=== PATIENT | male | born 1955 | race Caucasian/White ===

== ENCOUNTER 2017-06-28 10:49 | Emergency (ER) | payer OTHER ==
[~2017-06-28] VITALS: Ht 175.3 cm; Wt 88.5 kg
--- NOTE | 2017-06-28 11:57 | ED INFLUENZA/URI COMPLAINT ---
History of Present Illness General Chief Complaint: Upper Respiratory Sx/Fever Stated Complaint: ?FLU Source: patient Exam Limitations: no limitations Vital Signs & Intake/Output Vital Signs & Intake/Output Vital Signs Date Time Temp Pulse Resp B/P B/P Pulse O2 O2 Flow FiO2 Mean Ox Delivery Rate 06/28 1201 97 06/28 1158 97.6 94 18 134/102 97 Room Air 06/28 1103 98.8 96 20 170/121 99 Room Air Allergies Coded Allergies: Penicillins (RASH/HIVE 06/28/17) Reconcile Medications Benzonatate (Tessalon Perle) 100 MG CAPSULE 1 CAP PO TID PRN COUGH Mometasone Furoate (Nasonex) 50 MCG SPRAY.PUMP 2 SPRAY NASB DAILY CONGESTION Oseltamivir Phosphate (Tamiflu) 75 MG CAPSULE 1 CAP PO BID FLU Triage Note: PT C/O HEAD CONGESTION, SORE THROAT, NON PRODUCTIVE COUGH, EARS CLOGGED SINCE TUESDAY NIGHT Triage Nurses Notes Reviewed? yes Onset: Gradual Duration: day(s): (2) Timing: remote history Severity: moderate Severity Numbers: 6 Prior Episodes/Possible Cause: occassional episodes No Modifying Factors: none HPI: Patient is a 61-year-old male with history of hypertension presenting to the emergency department complaining of generalized malaise, body aches, sinus congestion and dry cough has been going on for the past 2 days. Symptoms worsened last night. Denies any chest pain or palpitations. Shortness of breath only with coughing. Denies any nausea or vomiting. No abdominal pain. Has been using [id number] Delsym decongestant and cough medication with little to no relief. He does report that he has not taken his antihypertensive medication yet today. No headaches or visual changes. Unsure of any sick contacts. Did not get the flu shot this year. (Emily Gregory) Past History Travel History Traveled to [place] past 21 day No Medical History Any Pertinent Medical History? see below for history Surgical History Surgical History: non-contributory Psychosocial History What is your primary language Sinhala Tobacco Use: Quit >30 days ago ETOH Use: denies use Illicit Drug Use: denies illicit drug use Family History Hx Contributory? No (Emily Gregory) Review of Systems Review of Systems Constitutional: Reports: no symptoms. Comments Review of systems: See HPI, All other systems negative. Constitutional, no chills fever or weight loss HEENT: No visual changes Cardiovascular: No chest pain ,palpitation , orthopnea or ankle swelling Skin, no jaundice no rashes Respiratory: No dyspnea OR hemoptysis GI: No nausea no vomiting : No dysuria No hematuria Muscle skeletal: no back pain, no neck pain, Neurologic: No numbness no confusion, no headaches Psych: No stress anxiety or depression,. Heme/endocrine: No bruising no bleeding no polyuria or polydipsia Immunology: No splenectomy or history of AIDS (Emily Gregory) Physical Exam Physical Exam General Appearance: well developed/nourished, no apparent distress, alert, awake , comfortable Ears, Nose, Throat: nasal congestion, nasal drainage Comments: Well-developed well-nourished person in no acute distress HEENT: Pupils equally round and reactive to light and accommodation. Nose is atraumatic. External auditory canal clear bilaterally, tympanic membranes have fluid level, serous.. Pharynx is moderately erythematous, no exudate, no tonsillar enlargement.. No swelling or edema. Clear nasal discharge bilaterally. Neck: Supple, no lymphadenopathy Back: Nontender Cardiovascular: Regular rate and rhythms no murmurs rubs or gallops, normal JVP Respiratory: Chest nontender. No respiratory distress.breath sounds clear to auscultation bilaterally Extremity: No edema Neuro: Alert oriented x3 Skin: No appreciable rash on exposed skin, skin is warm and dry. Psych: Mood and affect is normal, memory and judgment is normal. Core Measures Sepsis Present: No Sepsis Focused Exam Completed? No (Emily Gregory) Progress Differential Diagnosis: influenza, pneumonia, pharyngitis, sinusitis Plan of Care: Orders Procedure Date/time Status RAPID VIRAL INFLUENZA A 06/28 1053 Complete Microbiology 06/28 1107 NASOPHARYN: Influenza Virus A & B Rapid Smear - COMP INFLUENZA TYPE A Initial ED EKG: none Comments: Positive influenza, symptoms worsen since last evening. Patient started on Tamiflu. Also given medication help with congestion and cough. Patient has a follow-up appointment with primary care physician in the next 24 hours. Educated on signs and symptoms return. Lungs are clear, no signs of pneumonia. Patient afebrile. Likely all secondary to viral process. (Emily Gregory) Departure Departure Time of Disposition: 1156 Disposition: HOME OR SELF CARE Condition: Stable Clinical Impression Primary Impression: Influenza Secondary Impressions: Hypertension Qualifiers: Hypertension type: essential hypertension Qualified Code: I10 - Essential (primary) hypertension Referrals: Bogdan Hollingsworth (PCP/Family) Additional Instructions: Follow-up with the primary care physician in the next 5-7 days. Increase fluids. Return for worsening symptoms or concerns. Take Tamiflu as prescribed. Departure Forms: Customer Survey General Discharge Information Prescriptions: Current Visit Scripts Oseltamivir Phosphate (Tamiflu) 1 CAP PO BID #10 CAP Benzonatate (Tessalon Perle) 1 CAP PO TID PRN COUGH #30 CAP Mometasone Furoate (Nasonex) 2 SPRAY NASB DAILY #1 INHAL (Emily Gregory) PA/CUT OUT AND MARKING MACHINE OPERATOR Co-Sign Statement Statement: ED Attending supervision documentation- x I saw and evaluated the patient. I have also reviewed all the pertinent lab results and diagnostic results. I agree with the findings and the plan of care as documented in the PA's/CUT OUT AND MARKING MACHINE OPERATOR's documentation. [] I have reviewed the ED Record and agree with the PA's/CUT OUT AND MARKING MACHINE OPERATOR's documentation. [] Additions or exceptions (if any) to the PAs/CUT OUT AND MARKING MACHINE OPERATOR's note and plan are summarized below: [] (Jagjit WOODRUFF,Jethro)
[2017-06-28 11:58] VITALS: BP 134/102
[2017-06-28] MEDS ORDERED: NASONEX17 GM NASB (12:04)
[2017-06-28] MEDS ORDERED: TESSALON PERLE100 M1 PO (12:04)
[2017-06-28] MEDS ORDERED: TAMIFLU75 M1 PO (12:04)
== END 2017-06-28 12:08 ==
LOC: ERH 10:49
DX: J11.1 Influenza due to unidentified influenza virus with other respiratory manifestations (principal); I10 Essential (primary) hypertension; Z87.891 Personal history of nicotine dependence
CPT/HCPCS: 87804; 87804-59